=== PATIENT | female | born 1975 | race Asian ===

== ENCOUNTER → 2018-03-11 | Outpatient (CLI) | payer OTHER ==
[2018-03-11 09:21] LABS: IRON (FE) 90 UG/DL (50-170)
== END ==
LOC: M LAB 08:18
DX: G25.81 Restless legs syndrome (principal); R22.32 Localized swelling, mass and lump, left upper limb
CPT/HCPCS: 73110

== ENCOUNTER → 2018-04-02 | Outpatient (CLI) | payer OTHER | LOC: M WHC 13:36 | DX: Z12.31 Encounter for screening mammogram for malignant neoplasm of breast (principal) | CPT/HCPCS: 77067 ==

== ENCOUNTER → 2018-07-08 | Outpatient (CLI) | payer OTHER ==
[2018-07-08 11:41] LABS: BASO # 0.1 10^3/uL (0.0-0.2); BASO % 0.8 % (0.0-1.0); EOS # 0.2 10^3/uL (0.0-0.50); EOS % 3.4 % (0.0-3.0); HEMATOCRIT 41.2 % (36.0-47.0); HEMOGLOBIN 13.1 g/dl (12.0-15.5); IMMATURE GRANULOCYTE % 0.3 % (0-3.0); LYMPH # 1.7 10^3/uL (1.5-4.5); LYMPH % 27.2 % (24.0-44.0); MEAN CORPUSCULAR HGB CONC 31.8 g/dl (32.0-36.5); MEAN CORPUSCULAR VOLUME 91.2 fl (80.0-96.0); MONO # 0.4 10^3/uL (0.0-0.8); MONO % 5.9 % (0.0-5.0); NEUTROPHILS # 3.8 10^3/uL (1.8-7.7); NEUTROPHILS % 62.4 % (36.0-66.0); PLATELET COUNT, AUTOMATED 273 10^3/uL (150-450); RED BLOOD COUNT 4.52 10^6/uL (4.00-5.40); RED CELL DISTRIBUTION WIDTH 12.1 % (11.5-14.5); WHITE BLOOD COUNT 6.1 10^3/uL (4.0-10.0)
[2018-07-08 12:03] LABS: APPEARANCE, URINE CLEAR (CLEAR); BACTERIA, URINE AUTO 1+ (NEGATIVE); BILIRUBIN, URINE AUTO NEGATIVE (NEGATIVE); BLOOD, URINE BLOOD NEGATIVE (NEGATIVE); COLOR, URINE YELLOW (YELLOW); GLUCOSE, URINE (UA) AUTO NEGATIVE (NEGATIVE); KETONE, URINE AUTO NEGATIVE (NEGATIVE); LEUKOCYTE ESTERASE, URINE AUTO NEGATIVE (NEGATIVE); NITRITE, URINE AUTO NEGATIVE (NEGATIVE); PROTEIN, URINE AUTO NEGATIVE (NEGATIVE); RBC, URINE AUTO 1 /HPF (0-3); SPECIFIC GRAVITY URINE AUTO 1.011 (1.002-1.035); SQUAMOUS EPITHELIAL CELL UR AU 0 /HPF (0-6); UROBILINOGEN, URINE AUTO 0.2 mg/dL (0.0-2.0); WBC, URINE AUTO 0 /HPF (0-3)
[2018-07-08 12:49] LABS: ALBUMIN 3.8 GM/DL (3.2-5.2); ALBUMIN/GLOBULIN RATIO 1.09 (1.00-1.93); ALKALINE PHOSPHATASE 65 U/L (45-117); ALT/SGPT 56 U/L (12-78); ANION GAP 10 MEQ/L (8-16); AST/SGOT 18 U/L (7-37); BILIRUBIN,TOTAL 0.5 MG/DL (0.2-1.0); BLOOD UREA NITROGEN 12 MG/DL (7-18); CALCIUM LEVEL 8.4 MG/DL (8.5-10.1); CARBON DIOXIDE LEVEL 25 MEQ/L (21-32); CHLORIDE LEVEL 104 MEQ/L (98-107); CREATININE FOR GFR 0.69 MG/DL (0.55-1.30); GLOMERULAR FILTRATION RATE > 60.0 (>58); GLUCOSE, FASTING 86 MG/DL (70-100); POTASSIUM SERUM 4.3 MEQ/L (3.5-5.1); SODIUM LEVEL 139 MEQ/L (136-145); TOTAL PROTEIN 7.3 GM/DL (6.4-8.2)
== END ==
LOC: M LAB 11:15
DX: R10.32 Left lower quadrant pain (principal)
CPT/HCPCS: 80053

== ENCOUNTER → 2018-07-09 | Outpatient (REF) | payer OTHER | LOC: M LAB REF 12:38 | DX: R10.32 Left lower quadrant pain (principal) | CPT/HCPCS: 87507 ==

== ENCOUNTER → 2018-09-29 | Outpatient (REF) | payer OTHER ==
[~2018-09-29] MED LIST: BENA25CA4 PO; ZYRT10CA5 PO
[2018-09-29 11:42] LABS: BASO % 0.7 % (0.0-1.0); EOS # 0.2 10^3/uL (0.0-0.50); EOS % 4.4 % (0.0-3.0); HEMATOCRIT 38.6 % (36.0-47.0); HEMOGLOBIN 12.3 g/dl (12.0-15.5); LYMPH # 1.5 10^3/uL (1.5-4.5); MEAN CORPUSCULAR HEMOGLOBIN 28.7 pg (27.0-33.0); MEAN CORPUSCULAR HGB CONC 31.9 g/dl (32.0-36.5); MEAN CORPUSCULAR VOLUME 90.2 fl (80.0-96.0); MONO # 0.4 10^3/uL (0.0-0.8); MONO % 6.6 % (0.0-5.0); NEUTROPHILS # 3.3 10^3/uL (1.8-7.7); NEUTROPHILS % 60.1 % (36.0-66.0); PLATELET COUNT, AUTOMATED 259 10^3/uL (150-450); RED BLOOD COUNT 4.28 10^6/uL (4.00-5.40); WHITE BLOOD COUNT 5.4 10^3/uL (4.0-10.0)
[2018-09-29 11:49] LABS: ALBUMIN 3.5 GM/DL (3.2-5.2); ALT/SGPT 59 U/L (12-78); BILIRUBIN,TOTAL 0.3 MG/DL (0.2-1.0); BLOOD UREA NITROGEN 10 MG/DL (7-18); CALCIUM LEVEL 8.7 MG/DL (8.5-10.1); CARBON DIOXIDE LEVEL 28 MEQ/L (21-32); CHLORIDE LEVEL 105 MEQ/L (98-107); CREATININE FOR GFR 0.75 MG/DL (0.55-1.30); GLOMERULAR FILTRATION RATE > 60.0 (>58); GLUCOSE, FASTING 109 MG/DL (70-100); POTASSIUM SERUM 4.3 MEQ/L (3.5-5.1); SODIUM LEVEL 140 MEQ/L (136-145); TOTAL PROTEIN 6.9 GM/DL (6.4-8.2)
== END ==
LOC: M SFHCPLAZ 09:27
PROVIDERS: ATTEND Family Medicine
DX: R19.7 Diarrhea, unspecified (principal)
CPT/HCPCS: 36415; 80053; 85025; G0463

== ENCOUNTER → 2018-10-01 | Outpatient (CLI) | payer OTHER ==
--- NOTE | 2018-10-01 09:00 | REP ---
MRA BRAIN WITHOUT CONTRAST: HISTORY: Headaches. 3D [id number] MR angiography was performed at the level of the [place]. There is no aneurysm, arteriovenous malformation, or atherosclerotic lesion. Major intracranial vessels are patent. The right vertebral artery is dominant. IMPRESSION: Normal MRA brain. Electronically Signed by Kwame Figueroa MD 10/01/2018 09:09 A
--- NOTE | 2018-10-01 09:05 | REP ---
MR BRAIN WITHOUT CONTRAST: HISTORY: Headaches. Several punctate areas of increased signal intensity on T2-weighted images are present in the subcortical white matter of the frontal and left parietal lobes. There is no intraparenchymal hemorrhage, infarct, mass or midline shift. The ventricular system is normal in appearance. There is no extracerebral collection. Mucosal thickening is present in the left maxillary sinus. IMPRESSION: There are several punctate areas of increased signal intensity in the subcortical white matter of the frontal and left parietal lobes. This is a nonspecific finding, however, can be seen in conditions such as migraine. Electronically Signed by Kwame Figueroa MD 10/01/2018 09:08 A
== END ==
LOC: M RAD 07:29
PROVIDERS: ATTEND Family Medicine
DX: G43.009 Migraine without aura, not intractable, without status migrainosus (principal)

== ENCOUNTER → 2018-10-31 | Outpatient (CLI) | payer OTHER ==
--- NOTE | 2018-11-06 13:17 | SLEEPCENT ---
DATE OF PROCEDURE: 10/31/2018. ORDERING PROVIDER: Jen Mcqueen Nocturnal polysomnography was performed for evaluation of sleep physiology in this patient with a history of excessive somnolence and nonrestorative sleep. 7 hours and 27 minutes of data were reviewed. There are 371 minutes of sleep identified. Sleep latency was prolonged at 37 minutes. Rapid eye movement (REM) latency was normal at 77 minutes. Sleep architecture showed fragmentation, progression was maintained. There were four REM cycles noted. Overall sleep efficiency was 84.5%. The electrocardiogram showed sinus rhythm with an average heart rate of 70 beats per minute. Electroencephalogram (EEG) showed fairly normal waveforms for awake and sleep. There were 103 respiratory events identified of 10 seconds in duration or greater for an apnea-hypopnea index of 16.6. The events were primarily obstructive, 13 mixed and central apneas were seen. The events were not exclusive to sleep stage and more frequent in the supine posture. Arousals from respiratory events when snoring was included occurred 13.9 times per hour. There were oxygen desaturations below 90%. Remaining measures of sleep physiology were normal. IMPRESSION: Obstructive sleep apnea syndrome (G47.33), apnea-hypopnea index 16.6. RECOMMENDATIONS The patient should be encouraged to return to the sleep disorder center for pressure therapy. In the interim, alcohol and sedative avoidance should be practiced and caution exercised during the operation of motor vehicles.
== END ==
LOC: M SLEEP 19:48
PROVIDERS: ATTEND Nurse Practitioner Family
DX: G47.33 Obstructive sleep apnea (adult) (pediatric) (principal)

== ENCOUNTER 2018-11-12 14:36 | Emergency (ER) | payer OTHER ==
[~2018-11-12] VITALS: Ht 149.9 cm; Wt 75.0 kg
[~2018-11-12 14:36] MED LIST changes: +CYCL5TAB PO; +MULT1TAB10 PO; +PROBCAP4 PO
[2018-11-12] MEDS ORDERED: EPIN0.3I11 (14:49)
[2018-11-12] MEDS ORDERED: PANT40TA3 PO (14:49)
[2018-11-12] MEDS ORDERED: diphenhydrAMINE INJ 50MG/ML VIAL (J1200) IV ONE (15:30)
[2018-11-12] MEDS ORDERED: METOCLOPRAMIDE INJ 10MG/2ML VIAL (J2765) IV ONE (15:30)
[2018-11-12] MEDS ORDERED: NS 1,000 ML IV ONE (15:30)
[2018-11-12] MEDS ORDERED: KETOROLAC 30 MG/ML VIAL (J1885) IV ONE (15:30)
[2018-11-12 16:26] LABS: BASO % 0.6 % (0.0-1.0); EOS # 0.2 10^3/uL (0.0-0.50); EOS % 2.6 % (0.0-3.0); HEMOGLOBIN 12.4 g/dl (12.0-15.5); LYMPH % 27.7 % (24.0-44.0); MEAN CORPUSCULAR HEMOGLOBIN 28.7 pg (27.0-33.0); MEAN CORPUSCULAR HGB CONC 31.8 g/dl (32.0-36.5); MEAN CORPUSCULAR VOLUME 90.3 fl (80.0-96.0); MONO # 0.5 10^3/uL (0.0-0.8); NEUTROPHILS # 4.4 10^3/uL (1.8-7.7); NEUTROPHILS % 61.7 % (36.0-66.0); PLATELET COUNT, AUTOMATED 357 10^3/uL (150-450); RED BLOOD COUNT 4.32 10^6/uL (4.00-5.40); WHITE BLOOD COUNT 7.1 10^3/uL (4.0-10.0)
[2018-11-12 16:42] LABS: INR 0.9; PROTHROMBIN TIME 12.2 SECONDS (12.1-14.4)
[2018-11-12 16:43] LABS: PARTIAL THROMBOPLASTIN TIME 28.6 SECONDS (25.4-37.6)
--- NOTE | 2018-11-12 16:51 | REP ---
CT Head without contrast HISTORY: Headache COMPARISON: MR 10/01/2018 There is no intraparenchymal hemorrhage, acute infarct, mass or midline shift. The ventricular system is normal in appearance. There is no extra cerebral collection. There is no fracture. The visualized sinuses are clear. IMPRESSION: There is no intracranial lesion. Electronically Signed by Kwame Figueroa MD 11/12/2018 04:43 P
--- NOTE | 2018-11-12 16:54 | REP ---
CT cervical spine without contrast HISTORY: Headache COMPARISON: None There is no acute fracture or subluxation. There is no disc bulge or herniation. The spinal canal and neural foramina are patent. The intervertebral discs and vertebral bodies are normal in height. IMPRESSION: There is no acute fracture or subluxation. Electronically Signed by Kwame Figueroa MD 11/12/2018 04:45 P
[2018-11-12 17:03] LABS: BLOOD UREA NITROGEN 9 MG/DL (7-18); CALCIUM LEVEL 9.2 MG/DL (8.5-10.1); CARBON DIOXIDE LEVEL 26 MEQ/L (21-32); CHLORIDE LEVEL 106 MEQ/L (98-107); CK-MB VALUE MASS < 1.0 NG/ML (<3.6); CPK CREATINE PHOSPHOKINASE 67 U/L (26-192); CREATININE FOR GFR 0.68 MG/DL (0.55-1.30); FREE T4 0.96 NG/DL (0.76-1.46); GLOMERULAR FILTRATION RATE > 60.0 (>58); GLUCOSE, FASTING 92 MG/DL (70-100); MAGNESIUM LEVEL 2.2 MG/DL (1.8-2.4); MB/CK RELATIVE INDEX 1.49 (< OR =4); POTASSIUM SERUM 4.2 MEQ/L (3.5-5.1); SODIUM LEVEL 139 MEQ/L (136-145); TROPONIN I < 0.02 NG/ML (< 0.10)
[2018-11-12] MEDS ORDERED: IMIT50TA PO (17:34)
[2018-11-12 18:09] VITALS: BP 116/74
[2018-11-13] MEDS ORDERED: 12 H120T2 PO (14:40)
[2018-11-13] MEDS ORDERED: EXCETAB81 PO (14:40)
[2018-11-13] MEDS ORDERED: VALA1TAB2 PO (19:10)
[2018-11-13] MEDS ORDERED: KETO10TAB PO (19:10)
== END 2018-11-12 18:11 | disposition home or self-care (01) ==
LOC: M ED 14:36
DX: G43.909 Migraine, unspecified, not intractable, without status migrainosus (principal); F33.9 Major depressive disorder, recurrent, unspecified; G47.33 Obstructive sleep apnea (adult) (pediatric); Z79.899 Other long term (current) drug therapy; Z88.2 Allergy status to sulfonamides
CPT/HCPCS: 70450; 72125; 80048; 81001; 81025; 82550; 82553; 83735; 84439; 84443; 84484; 85025; 85610; 85730; 96361; 96374; 96375; 99284; J1200; J1885; J2765

== ENCOUNTER 2018-11-13 14:23 | Emergency (ER) | payer OTHER ==
[~2018-11-13] VITALS: Ht 149.9 cm; Wt 75.0 kg
[~2018-11-13 14:23] MED LIST changes: +EPIN0.3I11; +IMIT50TA PO; +PANT40TA3 PO
[2018-11-13] MEDS ORDERED: EXCETAB81 PO (14:40)
[2018-11-13] MEDS ORDERED: 12 H120T2 PO (14:40)
[2018-11-13] MEDS ORDERED: NS 1,000 ML IV ONE (16:15)
[2018-11-13] MEDS ORDERED: KETOROLAC 30 MG/ML VIAL (J1885) IV ONE (16:15)
[2018-11-13] MEDS ORDERED: FLUORESCEIN OPHTH 1 MG STRIP OS ONE (16:15)
[2018-11-13] MEDS ORDERED: METOCLOPRAMIDE INJ 10MG/2ML VIAL (J2765) IV ONE (16:15)
[2018-11-13] MEDS ORDERED: diphenhydrAMINE INJ 50MG/ML VIAL (J1200) IV ONE (16:15)
--- NOTE | 2018-11-13 18:13 | ECGEPIP ---
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
[2018-11-13 18:17] LABS: INFLUENZA A AMPLIFICATION NEGATIVE (NEGATIVE); INFLUENZA B AMPLIFICATION NEGATIVE (NEGATIVE)
[2018-11-13] MEDS ORDERED: VALA1TAB2 PO (19:10)
[2018-11-13] MEDS ORDERED: KETO10TAB PO (19:10)
[2018-11-13 19:15] VITALS: BP 137/77
== END 2018-11-13 19:20 | disposition home or self-care (01) ==
LOC: M ED 14:23
DX: G43.909 Migraine, unspecified, not intractable, without status migrainosus (principal); B02.9 Zoster without complications; K44.9 Diaphragmatic hernia without obstruction or gangrene; F32.9 Major depressive disorder, single episode, unspecified; Z79.899 Other long term (current) drug therapy; Z91.012 Allergy to eggs; Z91.011 Allergy to milk products; Z88.8 Allergy status to other drugs, medicaments and biological substances; Z88.2 Allergy status to sulfonamides
CPT/HCPCS: 87502; 87880; 93005; 96374; 96375; 99284; J1200; J1885; J2765

== ENCOUNTER → 2018-11-25 | Outpatient (CLI) | payer OTHER ==
[~2018-11-25] MED LIST changes: +12 H120T2 PO; +EXCETAB81 PO; +KETO10TAB PO; +VALA1TAB2 PO
--- NOTE | 2018-12-02 23:23 | SLEEPCENT ---
DATE OF PROCEDURE: 11/25/2018 ORDERED BY: Jen Mcqueen Nocturnal polysomnography was performed for the titration of pressure therapy in this patient with obstructive sleep apnea syndrome, apnea-hypopnea index 16.6. For testing, the patient was fit with a ResMed Flannery FX nasal pillows device of small size, 4 cm of water pressure were applied to the circuit and the lights extinguished. 7 hours and 13 minutes of data were reviewed. There were 358 minutes of sleep identified. Sleep latency was short at 5.5 minutes. Rapid eye movement (REM) latency was normal at 79 minutes. Sleep architecture was good with three REM cycles. Overall sleep efficiency 83.7%. The electrocardiogram showed a sinus rhythm with an average heart rate of 68 beats per minute. EEG showed normal waveforms for awake and sleep. Respiratory events were well palliated with continuous positive airway pressure (CPAP) at a pressure +6. Remaining measures of sleep physiology were reasonably normal. IMPRESSION: Obstructive sleep apnea syndrome (G47.33). RECOMMENDATIONS: Nightly use of pressure therapy 6 cm of water.
== END ==
LOC: M SLEEP 19:33
PROVIDERS: ATTEND Nurse Practitioner Family
DX: G47.33 Obstructive sleep apnea (adult) (pediatric) (principal)

== ENCOUNTER → 2018-12-18 | Outpatient (REF) | payer OTHER ==
[~2018-12-18] MED LIST changes: +CARA1TAB6 PO; -EPIN0.3I11; +EPIN0.3I11 IM; +TOPA50TA8 PO
[2018-12-20 16:40] LABS: HPV HYBRID CAPTURE II Negative (Negative)
== END ==
LOC: M LAB REF 18:33
PROVIDERS: ATTEND Obstetrics & Gynecology
DX: Z12.4 Encounter for screening for malignant neoplasm of cervix (principal)
CPT/HCPCS: 87624; G0123

== ENCOUNTER 2018-12-23 11:44 | Day surgery (SDC) | payer OTHER ==
[~2018-12-23] VITALS: Ht 149.9 cm; Wt 69.4 kg
[~2018-12-23 11:44] MED LIST changes: +NS 1,000 ML IV ONE
[2018-12-23] MEDS ORDERED: LIDOCAINE 2% INJ 100 MG/5 ML SDV (FOR ANES.) As Ordered ONE (13:02)
[2018-12-23] MEDS ORDERED: PROPOFOL 200 MG/20 ML VIAL As Ordered ONE (13:02)
--- NOTE | 2018-12-23 13:37 | ROOR ---
Patient Name: Carmencita Herrera Procedure Date: 12/23/2018 1:13 PM Date of : 1975 Age: 43 Room: [facility] Gender: Female Note Status: Finalized Procedure: Upper GI endoscopy Indications: Suspected gastro-esophageal reflux disease Providers: Linden Julien MD Referring MD: Sanam Arango MD Requesting Provider: Medicines: Monitored Anesthesia Care Complications: No immediate complications. Procedure: Pre-Anesthesia Assessment: - Prior to the procedure, a History and Physical was performed, and patient medications and allergies were reviewed. The patient is competent. The risks and benefits of the procedure and the sedation options and risks were discussed with the patient. All questions were answered and informed consent was obtained. Patient identification and proposed procedure were verified by the physician, the nurse and the anesthesiologist in the procedure room. Mental Status Examination: alert and oriented. Airway Examination: normal oropharyngeal airway and neck mobility. Respiratory Examination: clear to auscultation. CV Examination: normal. Prophylactic Antibiotics: The patient does not require prophylactic antibiotics. Prior Anticoagulants: The patient has taken no previous anticoagulant or antiplatelet agents. ASA Grade Assessment: II - A patient with mild systemic disease. After reviewing the risks and benefits, the patient was deemed in satisfactory condition to undergo the procedure. The anesthesia plan was to use monitored anesthesia care (MAC). Immediately prior to administration of medications, the patient was re-assessed for adequacy to receive sedatives. The heart rate, respiratory rate, oxygen saturations, blood pressure, adequacy of pulmonary ventilation, and response to care were monitored throughout the procedure. The physical status of the patient was re-assessed after the procedure. The Endoscope was introduced through the mouth, and advanced to the second part of duodenum. The upper GI endoscopy was accomplished without difficulty. The patient tolerated the procedure well. Findings: The examined esophagus was normal. The Z-line was regular and was found 35 cm from the incisors. Patchy minimal inflammation characterized by erythema and granularity was found in the gastric antrum. Biopsies were taken with a cold forceps for Helicobacter pylori testing. Verification of patient identification for the specimen was done by the physician and nurse using the patient's name, date and medical record number. Estimated blood loss was minimal. The duodenal bulb and second portion of the duodenum were normal. The MOORE capsule with delivery system was introduced through the mouth and advanced into the esophagus, such that the MOORE pH capsule was positioned 29 cm from the incisors, which was 6 cm proximal to the GE junction. Suction was applied to the well of the MOORE pH capsule to suck in the adjacent mucosa of the esophagus using the external vacuum pump set at a minimum vacuum pressure of 550 mmHg for 30 seconds. The MOORE pH capsule was then deployed by depressing the plunger on top of the handle to advance the locking pin into the mucosa, thereby attaching the capsule to the esophagus. The plunger was then rotated a quarter turn clockwise to release the capsule from the delivery system. The delivery system was then withdrawn. Endoscopy was utilized for probe placement and diagnostic evaluation. The scope was reinserted to evaluate placement of the MOORE capsule. Visualization showed the MOORE capsule to be in an appropriate position. Impression: - Normal esophagus. - Z-line regular, 35 cm from the incisors. - Gastritis. Biopsied. - Normal duodenal bulb and second portion of the duodenum. - The MOORE pH capsule was positioned 29 cm from the incisors, which was 6 cm proximal to the GE junction. Recommendation: - Patient has a contact number available for emergencies. The signs and symptoms of potential delayed complications were discussed with the patient. Return to normal activities tomorrow. Written discharge instructions were provided to the patient. - Resume previous diet. - Continue present medications. - Follow an antireflux regimen. - Await pathology results. - Based on the biopsy results you will receive a phone call from GI clinic in 2-3 weeks to review the pathology results AND/OR your results will be faxed to your Primary care physician. - Return to primary care physician. Linden Julien MD Linden Julien MD 12/23/2018 1:37:29 PM Electronically signed by Linden Julien MD Number of Addenda: 0 Note Initiated On: 12/23/2018 1:13 PM Estimated Blood Loss: Estimated blood loss: none.
[2018-12-23 13:55] VITALS: BP 145/82
== END 2018-12-23 14:19 | disposition home or self-care (01) ==
LOC: M OPP 11:44
PROVIDERS: ATTEND Internal Medicine Gastroenterology
DX: K29.50 Unspecified chronic gastritis without bleeding (principal); R13.10 Dysphagia, unspecified

== ENCOUNTER 2019-03-15 06:23 | Emergency (ER) | payer OTHER ==
[~2019-03-15] VITALS: Ht 149.9 cm; Wt 72.7 kg
[~2019-03-15 06:23] MED LIST changes: -NS 1,000 ML IV ONE
[2019-03-15 06:52] LABS: BASO % 0.2 % (0.0-1.0); EOS # 0.1 10^3/uL (0.0-0.50); EOS % 0.9 % (0.0-3.0); HEMATOCRIT 32.2 % (36.0-47.0); HEMOGLOBIN 9.7 g/dl (12.0-15.5); LYMPH # 0.9 10^3/uL (1.5-4.5); LYMPH % 7.6 % (24.0-44.0); MEAN CORPUSCULAR HEMOGLOBIN 25.9 pg (27.0-33.0); MEAN CORPUSCULAR HGB CONC 30.1 g/dl (32.0-36.5); MEAN CORPUSCULAR VOLUME 86.1 fl (80.0-96.0); MONO # 0.4 10^3/uL (0.0-0.8); MONO % 3.6 % (0.0-5.0); NEUTROPHILS # 10.3 10^3/uL (1.8-7.7); NEUTROPHILS % 87.3 % (36.0-66.0); PLATELET COUNT, AUTOMATED 278 10^3/uL (150-450); RED BLOOD COUNT 3.74 10^6/uL (4.00-5.40); WHITE BLOOD COUNT 11.8 10^3/uL (4.0-10.0)
[2019-03-15] MEDS ORDERED: SUCRALFATE SUSP 1GM/10ML UD PO ONE (07:00)
[2019-03-15] MEDS ORDERED: GI COCKTAIL 50ML BTL(HYOSCYAMINE/MAALOX/LIDOCAINE VISCOUS)(1:3:1) PO ONE (07:00)
[2019-03-15] MEDS ORDERED: PANTOPRAZOLE 40MG INJ (PROTONIX) (C9113) IV ONE (07:00)
[2019-03-15 07:01] LABS: INR 1.04; PROTHROMBIN TIME 13.3 SECONDS (11.8-14.0)
[2019-03-15 07:02] LABS: PARTIAL THROMBOPLASTIN TIME 26.3 SECONDS (25.0-38.4)
--- NOTE | 2019-03-15 07:07 | ECGEPIP ---
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
[2019-03-15 07:20] LABS: HCG, SERUM QUALITATIVE NEGATIVE (NEGATIVE)
[2019-03-15 07:21] LABS: ALBUMIN 3.7 GM/DL (3.2-5.2); BILIRUBIN,DIRECT 0.1 MG/DL (0.0-0.2); BILIRUBIN,TOTAL 0.3 MG/DL (0.2-1.0); TOTAL PROTEIN 7.5 GM/DL (6.4-8.2)
[2019-03-15 07:24] LABS: BLOOD UREA NITROGEN 12 MG/DL (7-18); CALCIUM LEVEL 8.6 MG/DL (8.5-10.1); CARBON DIOXIDE LEVEL 25 MEQ/L (21-32); CHLORIDE LEVEL 107 MEQ/L (98-107); CK-MB VALUE MASS < 1.0 NG/ML (<3.6); CPK CREATINE PHOSPHOKINASE 56 U/L (26-192); GLOMERULAR FILTRATION RATE > 60.0 (>58); GLUCOSE, FASTING 114 MG/DL (70-100); MB/CK RELATIVE INDEX 1.79 (< OR =4); POTASSIUM SERUM 3.9 MEQ/L (3.5-5.1); SODIUM LEVEL 138 MEQ/L (136-145); TROPONIN I < 0.02 NG/ML (< 0.10)
[2019-03-15 08:30] VITALS: BP 128/79
--- NOTE | 2019-03-16 15:09 | REP ---
Portable chest, 07:36 a.m., single AP view with the patient upright: There are no comparisons. The lung uriostegui are clear. The cardiac size is normal. The vasquez, mediastinum, and skeletal structures are unremarkable. Impression: Negative portable chest. Electronically Signed by Anirudh Russo MD 03/15/2019 08:03 A
== END 2019-03-15 08:39 | disposition home or self-care (01) ==
LOC: M ED 06:23
DX: R10.13 Epigastric pain (principal); K21.9 Gastro-esophageal reflux disease without esophagitis; F32.9 Major depressive disorder, single episode, unspecified; F41.1 Generalized anxiety disorder; Z79.891 Long term (current) use of opiate analgesic; Z79.899 Other long term (current) drug therapy; Z88.2 Allergy status to sulfonamides; Z88.8 Allergy status to other drugs, medicaments and biological substances; Z91.011 Allergy to milk products; Z91.012 Allergy to eggs
CPT/HCPCS: 71045; 80048; 80076; 82550; 82553; 83690; 84484; 84703; 85025; 85610; 85730; 93005; 93041; 94760; 96374; 99285; C9113

== ENCOUNTER → 2019-03-16 | Outpatient (REF) | payer OTHER ==
[2019-03-16 13:24] LABS: HEMATOCRIT 31.9 % (36.0-47.0); HEMOGLOBIN 9.5 g/dl (12.0-15.5); MEAN CORPUSCULAR HEMOGLOBIN 25.7 pg (27.0-33.0); MEAN CORPUSCULAR HGB CONC 29.8 g/dl (32.0-36.5); MEAN CORPUSCULAR VOLUME 86.4 fl (80.0-96.0); PLATELET COUNT, AUTOMATED 302 10^3/uL (150-450); RED BLOOD COUNT 3.69 10^6/uL (4.00-5.40)
[2019-03-16 13:52] LABS: FOLATE 17.7 NG/ML
== END ==
LOC: M SFHCPLAZ 10:29
PROVIDERS: ATTEND Family Medicine
DX: D64.9 Anemia, unspecified (principal)

== ENCOUNTER → 2019-04-23 | Outpatient (REF) | payer OTHER ==
[2019-04-23 10:47] LABS: HEMATOCRIT 36.8 % (36.0-47.0); HEMOGLOBIN 11.1 g/dl (12.0-15.5); MEAN CORPUSCULAR HEMOGLOBIN 26.4 pg (27.0-33.0); MEAN CORPUSCULAR HGB CONC 30.2 g/dl (32.0-36.5); MEAN CORPUSCULAR VOLUME 87.6 fl (80.0-96.0); PLATELET COUNT, AUTOMATED 262 10^3/uL (150-450); WHITE BLOOD COUNT 6.4 10^3/uL (4.0-10.0)
[2019-04-23 10:55] LABS: PERCENT SATURATION 16.2 % (13.2-45.0)
== END ==
LOC: M SFHCPLAZ 07:39
PROVIDERS: ATTEND Family Medicine
DX: D50.0 Iron deficiency anemia secondary to blood loss (chronic) (principal)

== ENCOUNTER → 2019-05-13 | Outpatient (CLI) | payer OTHER ==
[~2019-05-13] MED LIST changes: +BUPR100T3 PO; +CETI10CH PO; +CITA10TA5 PO; +CLAR10CA3 PO; +CVS1CAP2 PO; +EXCETAB22 PO; +FERR325T81 PO; +MULTCAP PO
--- NOTE | 2019-05-13 15:08 | REP ---
HISTORY: Pelvic pain. Transvesical and transvaginal imaging was obtained. Secondary to the complaints of pain, bilateral ovarian Doppler was obtained. The uterus measures 7 x 4.6 x 4.7 cm. The parenchymal echo pattern is heterogenous and multiple low echo nodules are suspected, the largest on the left measures 2.5 cm, the largest on the right measures 3 cm, and the largest fundal measures 1.6 cm. The endometrial echo complex is normal measuring 1.1 cm in thickness. The right ovary measures 3 x 2.2 x 2.7 cm and is within normal limits with an RI of 0.50. The left ovary measures 3.2 x 1.9 x 2.2 cm and is within normal limits with an RI of 0.47. The urinary bladder measures 11 x 9 x 5 cm. IMPRESSION: Uterine myomatous changes as described above. Electronically Signed by Inder Zamora DO 05/13/2019 05:12 P
== END ==
LOC: M RAD 11:10
PROVIDERS: ATTEND Obstetrics & Gynecology
DX: R10.30 Lower abdominal pain, unspecified (principal)

== ENCOUNTER 2019-06-05 06:44 | Day surgery (SDC) | payer OTHER ==
[~2019-06-05] VITALS: Ht 157.5 cm; Wt 69.4 kg
[~2019-06-05 06:44] MED LIST changes: +NS 1,000 ML IV ONE
[2019-06-05] MEDS ORDERED: LIDOCAINE 2% INJ 100 MG/5 ML SDV (FOR ANES.) As Ordered ONE (07:33)
[2019-06-05] MEDS ORDERED: PROPOFOL 200 MG/20 ML VIAL As Ordered ONE (07:33)
--- NOTE | 2019-06-05 08:21 | ROOR ---
Patient Name: Carmencita Herrera Procedure Date: 06/05/2019 7:34 AM Date of : 1975 Age: 44 Room: [facility] Gender: Female Note Status: Finalized Procedure: Colonoscopy Indications: Heme positive stool Providers: Linden Julien MD Referring MD: Sanam Arango MD Requesting Provider: Medicines: Monitored Anesthesia Care Complications: No immediate complications. Procedure: Pre-Anesthesia Assessment: - Prior to the procedure, a History and Physical was performed, and patient medications and allergies were reviewed. The patient is competent. The risks and benefits of the procedure and the sedation options and risks were discussed with the patient. All questions were answered and informed consent was obtained. Patient identification and proposed procedure were verified by the physician, the nurse and the anesthesiologist in the procedure room. Mental Status Examination: alert and oriented. Airway Examination: normal oropharyngeal airway and neck mobility. Respiratory Examination: clear to auscultation. CV Examination: normal. Prophylactic Antibiotics: The patient does not require prophylactic antibiotics. Prior Anticoagulants: The patient has taken no previous anticoagulant or antiplatelet agents. ASA Grade Assessment: II - A patient with mild systemic disease. After reviewing the risks and benefits, the patient was deemed in satisfactory condition to undergo the procedure. The anesthesia plan was to use monitored anesthesia care (MAC). Immediately prior to administration of medications, the patient was re-assessed for adequacy to receive sedatives. The heart rate, respiratory rate, oxygen saturations, blood pressure, adequacy of pulmonary ventilation, and response to care were monitored throughout the procedure. The physical status of the patient was re-assessed after the procedure. The Colonoscope was introduced through the anus and advanced to the terminal ileum, with identification of the appendiceal orifice and IC valve. The colonoscopy was performed without difficulty. The patient tolerated the procedure well. The quality of the bowel preparation was good. The terminal ileum, ileocecal valve, appendiceal orifice, and rectum were photographed. Scope insertion time was 3 minutes. Scope withdrawal time was 9 minutes. The total duration of the procedure was 12 minutes. Findings: The perianal and digital rectal examinations were normal. The terminal ileum appeared normal. A 4 mm polyp was found in the transverse colon. The polyp was sessile. The polyp was removed with a cold biopsy forceps. Resection and retrieval were complete. Verification of patient identification for the specimen was done by the physician and nurse using the patient's name, date and medical record number. Estimated blood loss was minimal. Patchy mild inflammation characterized by congestion (edema), erythema and granularity was found in the sigmoid colon and in the transverse colon. Biopsies were taken with a cold forceps for histology. Non-bleeding external and internal hemorrhoids were found during retroflexion. The hemorrhoids were small. Impression: - The examined portion of the ileum was normal. - One 4 mm polyp in the transverse colon, removed with a cold biopsy forceps. Resected and retrieved. - Patchy mild inflammation was found in the sigmoid colon and in the transverse colon secondary to colitis. Biopsied. - Non-bleeding external and internal hemorrhoids. Recommendation: - Patient has a contact number available for emergencies. The signs and symptoms of potential delayed complications were discussed with the patient. Return to normal activities tomorrow. Written discharge instructions were provided to the patient. - High fiber diet. - Continue present medications. - Await pathology results. - Repeat colonoscopy in 5-10 years for surveillance based on pathology results. - Check hemoglobin and hematocrit and iron studies in 3 months. - Return to GI clinic in 3 months. - Return to primary care physician. Linden Julien MD Linden Julien MD 06/05/2019 8:21:00 AM Electronically signed by Linden Julien MD Number of Addenda: 0 Note Initiated On: 06/05/2019 7:34 AM Estimated Blood Loss: Estimated blood loss was minimal.
[2019-06-05 08:35] VITALS: BP 142/74
== END 2019-06-05 08:38 | disposition home or self-care (01) ==
LOC: M OPP 06:44
PROVIDERS: ATTEND Internal Medicine Gastroenterology
DX: K64.8 Other hemorrhoids (principal); D12.3 Benign neoplasm of transverse colon; K52.9 Noninfective gastroenteritis and colitis, unspecified; R19.5 Other fecal abnormalities; G47.30 Sleep apnea, unspecified; Z79.899 Other long term (current) drug therapy; Z88.2 Allergy status to sulfonamides; Z88.8 Allergy status to other drugs, medicaments and biological substances; Z91.011 Allergy to milk products; Z91.012 Allergy to eggs

== ENCOUNTER → 2019-07-02 | Outpatient (CLI) | payer OTHER ==
[~2019-07-02] MED LIST changes: -NS 1,000 ML IV ONE
--- NOTE | 2019-07-02 14:24 | REPMRS ---
Patient History The patient states she has not had a clinical breast exam in over a year. Patient is nulliparous. No known family history of cancer. The [facility] lifetime risk for breast cancer is 14.2%. Digital Woman Screen Mammo: July 02, 2019 - Exam #: [id number] Bilateral CC and MLO view(s) were taken. Technologist: Carmencita Miles, Technologist Prior study comparison: April 02, 2018, bilateral digital woman screen mammo performed at [facility]. 2016, bilateral screening mammogram, [facility]. FINDINGS: The breast tissue is heterogeneously dense. This may lower the sensitivity of mammography. There has been no change in the appearance of the mammogram from the prior studies. There is a moderate amount of residual fibroglandular tissue which is fairly symmetric. There is no interval development of dominant mass, areas of architectural distortion, or clustered microcalcification typical of malignancy. Assessment: BI-RADS/ACR category 1 mammogram. Negative Mammogram. Recommendation Routine screening mammogram in 1 year (for women over age 40). This mammogram was interpreted with the aid of an FDA-approved computer-aided dectection system. Electronically Signed By: Anirudh Keita MD 07/02/19 0717
== END ==
LOC: M WHC 13:07
PROVIDERS: ATTEND Family Medicine
DX: Z12.31 Encounter for screening mammogram for malignant neoplasm of breast (principal)

== ENCOUNTER → 2019-08-28 | Outpatient (REF) | payer OTHER ==
[~2019-08-28] MED LIST changes: -VALA1TAB2 PO; +VALA1TAB64 PO
[2019-08-28 14:19] LABS: HEMATOCRIT 40.3 % (36.0-47.0); HEMOGLOBIN 12.7 g/dl (12.0-15.5); MEAN CORPUSCULAR HEMOGLOBIN 29.9 pg (27.0-33.0); MEAN CORPUSCULAR HGB CONC 31.5 g/dl (32.0-36.5); MEAN CORPUSCULAR VOLUME 94.8 fl (80.0-96.0); PLATELET COUNT, AUTOMATED 240 10^3/uL (150-450); RED BLOOD COUNT 4.25 10^6/uL (4.00-5.40); WHITE BLOOD COUNT 5.8 10^3/uL (4.0-10.0)
[2019-08-28 14:47] LABS: PERCENT SATURATION 10.2 % (13.2-45.0)
== END ==
LOC: M SFHCPLAZ 10:59
PROVIDERS: ATTEND Family Medicine
DX: D50.0 Iron deficiency anemia secondary to blood loss (chronic) (principal)
CPT/HCPCS: 36415; 82728; 83550; 85027; G0463

== ENCOUNTER → 2019-10-23 | Outpatient (CLI) | payer OTHER ==
[2019-10-23 14:15] LABS: BASO % 0.7 % (0.0-1.0); EOS # 0.2 10^3/uL (0.0-0.5); EOS % 3.7 % (0.0-3.0); HEMATOCRIT 38.9 % (36.0-47.0); HEMOGLOBIN 11.9 g/dl (12.0-15.5); LYMPH # 1.2 10^3/uL (1.5-5.0); LYMPH % 28.9 % (24.0-44.0); MEAN CORPUSCULAR HEMOGLOBIN 29.5 pg (27.0-33.0); MEAN CORPUSCULAR HGB CONC 30.6 g/dl (32.0-36.5); MEAN CORPUSCULAR VOLUME 96.3 fl (80.0-96.0); MONO # 0.4 10^3/uL (0.0-0.8); MONO % 9.1 % (0.0-5.0); NEUTROPHILS # 2.4 10^3/uL (1.5-8.5); NEUTROPHILS % 57.6 % (36.0-66.0); PLATELET COUNT, AUTOMATED 222 10^3/uL (150-450); RED BLOOD COUNT 4.04 10^6/uL (4.00-5.40); WHITE BLOOD COUNT 4.1 10^3/uL (4.0-10.0)
[2019-10-23 14:28] LABS: ALT/SGPT 24 U/L (12-78); BILIRUBIN,DIRECT 0.1 MG/DL (0.0-0.2); BILIRUBIN,TOTAL 0.5 MG/DL (0.2-1.0); FERRITIN 37 NG/ML (8-252); FREE T4 0.98 NG/DL (0.76-1.46); IRON (FE) 38 UG/DL (50-170); THYROID STIMULATING HORMONE 0.595 uIU/ML (0.358-3.740); TOTAL IRON BINDING CAPACITY 345 UG/DL (250-450)
== END ==
LOC: M PLALAB 09:36
PROVIDERS: ATTEND Family Medicine
DX: R74.0 Nonspecific elevation of levels of transaminase and lactic acid dehydrogenase [LDH] (principal); R61 Generalized hyperhidrosis; D50.0 Iron deficiency anemia secondary to blood loss (chronic)

== ENCOUNTER → 2019-10-23 | Outpatient (REF) | payer OTHER ==
[2019-10-23 14:28] LABS: FOLATE 18.4 NG/ML
== END ==
LOC: M PLALAB 14:02
PROVIDERS: ATTEND Internal Medicine Gastroenterology
DX: D50.9 Iron deficiency anemia, unspecified (principal)

== ENCOUNTER → 2020-01-06 | Outpatient (REF) | payer OTHER ==
[~2020-01-06] MED LIST changes: +VALA1TAB5 PO; -VALA1TAB64 PO
[2020-01-06 13:54] LABS: HEMATOCRIT 41.1 % (36.0-47.0); HEMOGLOBIN 12.8 g/dl (12.0-15.5); MEAN CORPUSCULAR HEMOGLOBIN 29.8 pg (27.0-33.0); MEAN CORPUSCULAR HGB CONC 31.1 g/dl (32.0-36.5); MEAN CORPUSCULAR VOLUME 95.6 fl (80.0-96.0); PLATELET COUNT, AUTOMATED 238 10^3/uL (150-450); WHITE BLOOD COUNT 5.7 10^3/uL (4.0-10.0)
[2020-01-06 14:04] LABS: PERCENT SATURATION 15.3 % (13.2-45.0)
== END ==
LOC: M SFHCPLAZ 10:48
PROVIDERS: ATTEND Family Medicine
DX: D50.0 Iron deficiency anemia secondary to blood loss (chronic) (principal)

== ENCOUNTER 2020-02-03 18:00 | Emergency (ER) | payer OTHER ==
[~2020-02-03] VITALS: Ht 149.9 cm; Wt 69.0 kg
[2020-02-03 18:46] LABS: BASO % 0.4 % (0.0-1.0); EOS # 0.2 10^3/uL (0.0-0.5); EOS % 1.9 % (0.0-3.0); HEMOGLOBIN 13.9 g/dl (12.0-15.5); LYMPH # 1.9 10^3/uL (1.5-5.0); LYMPH % 18.8 % (24.0-44.0); MEAN CORPUSCULAR HEMOGLOBIN 29.8 pg (27.0-33.0); MEAN CORPUSCULAR HGB CONC 32.3 g/dl (32.0-36.5); MEAN CORPUSCULAR VOLUME 92.3 fl (80.0-96.0); MONO # 0.5 10^3/uL (0.0-0.8); MONO % 4.9 % (0.0-5.0); NEUTROPHILS # 7.4 10^3/uL (1.5-8.5); NEUTROPHILS % 73.8 % (36.0-66.0); PLATELET COUNT, AUTOMATED 267 10^3/uL (150-450); RED BLOOD COUNT 4.66 10^6/uL (4.00-5.40); WHITE BLOOD COUNT 10.1 10^3/uL (4.0-10.0)
[2020-02-03 19:00] LABS: BLOOD UREA NITROGEN 9 MG/DL (7-18); CALCIUM LEVEL 8.9 MG/DL (8.5-10.1); CARBON DIOXIDE LEVEL 27 MEQ/L (21-32); CHLORIDE LEVEL 106 MEQ/L (98-107); GLOMERULAR FILTRATION RATE > 60.0 (>58); GLUCOSE, FASTING 85 MG/DL (70-100); POTASSIUM SERUM 4.2 MEQ/L (3.5-5.1); SODIUM LEVEL 138 MEQ/L (136-145)
[2020-02-03] MEDS ORDERED: diphenhydrAMINE 50MG/ML VIAL (J1200) IV ONE (19:00)
[2020-02-03] MEDS ORDERED: ONDANSETRON 4MG/2ML VIAL IV ONE (19:00)
[2020-02-03] MEDS ORDERED: NS 1,000 ML IV ONE (19:00)
[2020-02-03] MEDS ORDERED: KETOROLAC 30 MG/ML 1ML VIAL IV ONE (19:00)
[2020-02-03 19:30] LABS: C REACTIVE PROTEIN QUANTITATIV < 0.30 MG/DL (0.00-0.30)
--- NOTE | 2020-02-03 20:05 | REPVR ---
PROCEDURE INFORMATION: Exam: CT Cervical Spine Without Contrast Exam date and time: 02/03/2020 7:54 PM Age: 45 years old Clinical indication: Neck pain; Additional info: Neck pain/headache TECHNIQUE: Imaging protocol: Computed tomography images of the cervical spine without contrast. Radiation optimization: All CT scans at this facility use at least one of these dose optimization techniques: automated exposure control; mA and/or kV adjustment per patient size (includes targeted exams where dose is matched to clinical indication); or iterative reconstruction. COMPARISON: SR CT Spine,cervical w/o contrast 11/12/2018 4:22 PM FINDINGS: Vertebrae: No acute fracture. Normal alignment. C2-C3: No significant disc protrusion. No severe spinal canal stenosis. No significant neural foraminal narrowing. C3-C4: No significant disc protrusion. No severe spinal canal stenosis. No significant neural foraminal narrowing. C4-C5: No significant disc protrusion. No severe spinal canal stenosis. No significant neural foraminal narrowing. C5-C6: No significant disc protrusion. No severe spinal canal stenosis. No significant neural foraminal narrowing. C6-C7: No significant disc protrusion. No severe spinal canal stenosis. No significant neural foraminal narrowing. C7-T1: No significant disc protrusion. No severe spinal canal stenosis. No significant neural foraminal narrowing. Soft tissues: Unremarkable. Sinuses: Small retention cysts in the floor of the maxillary sinuses. Lungs: Lung apices are normal. IMPRESSION: No acute findings. Electronically signed by: Tanner Rondon On 02/03/2020 20:05:04 PM
--- NOTE | 2020-02-03 20:12 | REPVR ---
PROCEDURE INFORMATION: Exam: CT Head Without Contrast Exam date and time: 02/03/2020 7:54 PM Age: 45 years old Clinical indication: Pain; Visual disturbance; Headache; Additional info: Head pain/blurred vision TECHNIQUE: Imaging protocol: Computed tomography of the head without contrast. Radiation optimization: All CT scans at this facility use at least one of these dose optimization techniques: automated exposure control; mA and/or kV adjustment per patient size (includes targeted exams where dose is matched to clinical indication); or iterative reconstruction. COMPARISON: CT Head without contrast 11/12/2018 4:22 PM FINDINGS: Brain: Normal. No hemorrhage. Unremarkable white matter. No mass effect. Ventricles: Normal. No ventriculomegaly. Bones/joints: Skull hyperostosis. Sinuses: Visualized sinuses are unremarkable. No fluid levels. Mastoid air cells: Visualized mastoid air cells are well aerated. Soft tissues: Unremarkable. IMPRESSION: No acute intracranial abnormalities. Electronically signed by: Tanner Rondon On 02/03/2020 20:12:19 PM
[2020-02-03 21:07] VITALS: BP 146/75
== END 2020-02-03 21:09 | disposition home or self-care (01) ==
LOC: M ED 18:00
DX: R51 Headache (principal); H53.8 Other visual disturbances; R11.0 Nausea; R05 Cough; G47.33 Obstructive sleep apnea (adult) (pediatric); K44.9 Diaphragmatic hernia without obstruction or gangrene; F32.9 Major depressive disorder, single episode, unspecified; G43.909 Migraine, unspecified, not intractable, without status migrainosus; Z88.2 Allergy status to sulfonamides; Z88.8 Allergy status to other drugs, medicaments and biological substances; Z91.012 Allergy to eggs; Z91.011 Allergy to milk products; Z79.899 Other long term (current) drug therapy
CPT/HCPCS: 70450; 72125; 80048; 84702; 85025; 86140; 96361; 96374; 96375; 99284; J1200; J1885; J2405

== ENCOUNTER 2020-05-05 14:50 | Emergency (ER) | payer OTHER ==
[~2020-05-05 14:50] MED LIST changes: +PANT40TA29 PO; -PANT40TA3 PO
== END 2020-05-05 15:08 | disposition home or self-care (01) ==
LOC: M ED 14:50
DX: R06.02 Shortness of breath (principal); R05 Cough; R53.83 Other fatigue; D64.9 Anemia, unspecified; G47.33 Obstructive sleep apnea (adult) (pediatric); Z88.2 Allergy status to sulfonamides; Z91.011 Allergy to milk products; Z79.899 Other long term (current) drug therapy

== ENCOUNTER → 2020-06-14 | Outpatient (CLI) | payer OTHER ==
[~2020-06-14] MED LIST changes: +MAGN400C2 PO; +VITA100T59 PO
[2020-06-14 15:56] LABS: BASO % 0.5 % (0.0-1.0); EOS # 0.2 10^3/uL (0.0-0.5); EOS % 2.6 % (0.0-3.0); HEMATOCRIT 34.7 % (36.0-47.0); HEMOGLOBIN 10.7 g/dl (12.0-15.5); LYMPH # 1.6 10^3/uL (1.5-5.0); LYMPH % 24.1 % (24.0-44.0); MEAN CORPUSCULAR HEMOGLOBIN 29.5 pg (27.0-33.0); MEAN CORPUSCULAR HGB CONC 30.8 g/dl (32.0-36.5); MEAN CORPUSCULAR VOLUME 95.6 fl (80.0-96.0); MONO # 0.4 10^3/uL (0.0-0.8); MONO % 5.9 % (0.0-5.0); NEUTROPHILS # 4.4 10^3/uL (1.5-8.5); NEUTROPHILS % 66.7 % (36.0-66.0); PLATELET COUNT, AUTOMATED 300 10^3/uL (150-450); RED BLOOD COUNT 3.63 10^6/uL (4.00-5.40); WHITE BLOOD COUNT 6.6 10^3/uL (4.0-10.0)
[2020-06-14 16:24] LABS: PERCENT SATURATION 7.8 % (13.2-45.0)
[2020-06-14 17:09] LABS: FOLATE 12.2 NG/ML
== END ==
LOC: M LAB 14:56
PROVIDERS: ATTEND Internal Medicine Gastroenterology
DX: D50.9 Iron deficiency anemia, unspecified (principal)

== ENCOUNTER 2020-07-01 08:00 | Outpatient (CLI) | payer OTHER ==
[2020-07-01] VITALS (7 sets, daily range): BP systolic 99–123; BP diastolic 54–71
[~2020-07-01] VITALS: Ht 149.9 cm; Wt 72.7 kg
[~2020-07-01 08:00] MED LIST changes: -MAGN400C2 PO; -VITA100T59 PO
[2020-07-01] MEDS: IRON SUCROSE 25 MG in NS 25 ML IV ONE (08:50)
[2020-07-01] MEDS: IRON SUCROSE 225 MG in NS 250 ML IV ONE (09:58)
== END 2020-07-01 14:00 | disposition home or self-care (01) ==
LOC: M INFU 08:00
PROVIDERS: ATTEND Family Medicine
DX: D50.9 Iron deficiency anemia, unspecified (principal)
CPT/HCPCS: 96365; 96366; J1756

== ENCOUNTER 2020-07-12 07:44 | Outpatient (CLI) | payer OTHER ==
[~2020-07-12] VITALS: Ht 149.9 cm; Wt 72.7 kg
[2020-07-12 07:45] VITALS: BP 128/60
[2020-07-12] MEDS ORDERED: IRON SUCROSE 225 MG in NS 225 ML IV ONE (08:00)
[2020-07-12] MEDS ORDERED: IRON SUCROSE 25 MG in NS 25 ML IV ONE (08:00)
[2020-07-12] MEDS ORDERED: MAGN400C2 PO (08:03)
[2020-07-12] MEDS ORDERED: VITA100T59 PO (08:04)
[2020-07-12 09:00] VITALS: BP 114/71
[2020-07-12 10:00] VITALS: BP_SYST 115; BP_SYST 118; BP_DIAS 66; BP_DIAS 71
[2020-07-12 12:45] VITALS: BP 124/64
[2020-07-12 13:00] VITALS: BP 111/68
== END 2020-07-12 13:00 | disposition home or self-care (01) ==
LOC: M INFU 07:44
PROVIDERS: ATTEND Family Medicine
DX: D50.9 Iron deficiency anemia, unspecified (principal); Z88.2 Allergy status to sulfonamides; Z91.012 Allergy to eggs; Z91.011 Allergy to milk products
CPT/HCPCS: 96365; 96366; J1756

== ENCOUNTER 2020-07-19 08:23 | Outpatient (CLI) | payer OTHER ==
[~2020-07-19] VITALS: Ht 149.9 cm; Wt 72.7 kg
[~2020-07-19 08:23] MED LIST changes: +MAGN400C2 PO; +VITA100T59 PO
[2020-07-19] MEDS ORDERED: IRON SUCROSE 25 MG in NS 25 ML IV ONE (08:30)
[2020-07-19] MEDS ORDERED: IRON SUCROSE 225 MG in NS 225 ML IV ONE (08:30)
[2020-07-19 08:36] VITALS: BP 114/66
[2020-07-19 09:50] VITALS: BP 125/73
[2020-07-19 10:45] VITALS: BP 105/66
[2020-07-19 11:37] VITALS: BP 115/62
[2020-07-19 12:53] VITALS: BP 126/71
== END 2020-07-19 12:55 | disposition home or self-care (01) ==
LOC: M INFU 08:23
PROVIDERS: ATTEND Family Medicine
DX: D50.9 Iron deficiency anemia, unspecified (principal); Z88.2 Allergy status to sulfonamides
CPT/HCPCS: 96365; 96366; J1756

== ENCOUNTER → 2020-11-17 | Outpatient (REF) | payer OTHER ==
[2020-11-17 18:26] LABS: HEMATOCRIT 43.8 % (36.0-47.0); HEMOGLOBIN 13.3 g/dl (12.0-15.5); MEAN CORPUSCULAR HEMOGLOBIN 29.2 pg (27.0-33.0); MEAN CORPUSCULAR HGB CONC 30.4 g/dl (32.0-36.5); MEAN CORPUSCULAR VOLUME 96.1 fl (80.0-96.0); PLATELET COUNT, AUTOMATED 265 10^3/uL (150-450); RED BLOOD COUNT 4.56 10^6/uL (4.00-5.40); WHITE BLOOD COUNT 6.1 10^3/uL (4.0-10.0)
== END ==
LOC: M PLALAB 14:11
PROVIDERS: ATTEND Family Medicine
DX: D50.0 Iron deficiency anemia secondary to blood loss (chronic) (principal)

== ENCOUNTER → 2020-12-23 | Outpatient (REF) | payer OTHER ==
[2020-12-23 11:07] LABS: FREE T4 0.9 NG/DL (0.76-1.46); THYROID STIMULATING HORMONE 2.05 uIU/ML (0.358-3.740)
== END ==
LOC: M SFHCPLAZ 08:07
PROVIDERS: ATTEND Family Medicine
DX: R53.83 Other fatigue (principal)